=== PATIENT | female | born 1965 | race Caucasian/White ===

== ENCOUNTER → 2018-08-25 12:27 | Outpatient (CLI) | payer OTHER, SELFPAY ==
--- NOTE | 2018-08-25 12:29 | DI.MG.S_ITS ---
BILATERAL DIGITAL SCREENING MAMMOGRAM 3D/2D WITH CAD: 08/25/2018 CLINICAL: Routine screening. Comparison is made to exams dated: 08/22/2017 mammogram, 08/08/2016 mammogram, and 06/29/2015 mammogram - [facility]. The tissue of both breasts is heterogeneously dense. This may lower the sensitivity of mammography. Current study was also evaluated with a Computer Aided Detection (CAD) system. There are benign post operative findings in the left breast. There also are benign vascular calcifications in the left breast. No significant masses, calcifications, or other findings are seen in either breast. There has been no significant interval change. IMPRESSION: There is no mammographic evidence of malignancy. A 1 year screening mammogram is recommended. This exam was interpreted at Station ID: [id number]. NOTE: For mammograms, a report in lay terms will be sent to the patient. Approximately 15% of breast malignancies will not be visualized mammographically. In the management of a palpable breast mass, a negative mammogram must not discourage biopsy of a clinically suspicious lesion. Electronically Signed By: Omar barron/rosalio:08/25/2018 19:09:42 copy to: Marcel Vazquez letter sent: Normal Exam ACR BI-RADS Category 2: Benign Finding(s) 3342F
== END ==
PROVIDERS: PCP Family Medicine; Visit Provider Specialist
DX: Z12.31 Encounter for screening mammogram for malignant neoplasm of breast (principal); Z13.820 Encounter for screening for osteoporosis; Z82.62 Family history of osteoporosis; Z87.891 Personal history of nicotine dependence
CPT/HCPCS: 77063; 77067; 77080

== ENCOUNTER → 2020-03-28 16:13 | Outpatient (CLI) | payer OTHER, SELFPAY ==
--- NOTE | 2020-03-28 16:14 | DI.MG.S_ITS ---
BILATERAL DIGITAL SCREENING MAMMOGRAM 3D/2D WITH CAD: 03/28/2020 CLINICAL: Routine screening. Comparison is made to exams dated: 08/25/2018 mammogram, 08/22/2017 mammogram, and 08/08/2016 mammogram - [facility]. The tissue of both breasts is heterogeneously dense. This may lower the sensitivity of mammography. Current study was also evaluated with a Computer Aided Detection (CAD) system. There are benign post operative findings in the left breast. No significant masses, calcifications, or other findings are seen in either breast. There has been no significant interval change. IMPRESSION: BENIGN There is no mammographic evidence of malignancy. A 1 year screening mammogram is recommended. This exam was interpreted at Station ID: [id number]. NOTE: For mammograms, a report in lay terms will be sent to the patient. Approximately 15% of breast malignancies will not be visualized mammographically. In the management of a palpable breast mass, a negative mammogram must not discourage biopsy of a clinically suspicious lesion. Electronically Signed By: Chica mo/rosalio:03/28/2020 17:33:07 copy to: Marcel Vazquez letter sent: Normal Exam ACR BI-RADS Category 2: Benign Finding(s) 3342F
== END ==
PROVIDERS: PCP Family Medicine; Referring Provider Specialist; Visit Provider Specialist
DX: Z12.31 Encounter for screening mammogram for malignant neoplasm of breast (principal)
CPT/HCPCS: 77063; 77067

== ENCOUNTER → 2020-06-27 16:00 | Outpatient (CLI) | payer OTHER, SELFPAY ==
--- NOTE | 2020-06-27 | DI.RAD.S_ITS ---
PROCEDURE: XR SHOULDER LT MIN 2V INDICATIONS: Bilateral Shoulder Pain TECHNIQUE: 3 views of the shoulder were acquired. COMPARISON: [facility], , SHOULDER MINIMUM 2 VIEW LEFT, 02/03/2015, 14:24. FINDINGS: Bones: No fractures or dislocations. No suspicious bony lesions. Visualized ribs appear intact. Soft tissues: No suspicious soft tissue calcifications. 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 Dictated by: Shakeel Malik M.D. on 06/27/2020 at 17:24 Approved by: Shakeel Malik M.D. on 06/27/2020 at 17:24
--- NOTE | 2020-06-27 | DI.RAD.S_ITS ---
PROCEDURE: XR SHOULDER RT MIN 2V INDICATIONS: Bilateral Shoulder Pain TECHNIQUE: 3 views of the shoulder were acquired. COMPARISON: [facility], [facility], XR SHOULDER LT MIN 2V, 06/27/2020, 17:12. [facility], [facility], SHOULDER MINIMUM 2 VIEW LEFT, 02/03/2015, 14:24. FINDINGS: Bones: No fractures or dislocations but there has been interval acromioplasty on the right.. No suspicious bony lesions. Visualized ribs appear intact. Soft tissues: No suspicious soft tissue calcifications. IMPRESSION: Right-sided acromioplasty performed, chronicity uncertain. Dictated by: Shakeel Malik M.D. on 06/27/2020 at 17:24 Approved by: Shakeel Malik M.D. on 06/27/2020 at 17:26
== END ==
PROVIDERS: PCP Family Medicine; Referring Provider Family Medicine; Visit Provider Family Medicine
DX: M25.511 Pain in right shoulder (principal); M25.512 Pain in left shoulder
CPT/HCPCS: 73030

== ENCOUNTER → 2020-09-13 12:45 | Outpatient (CLI) | payer OTHER, SELFPAY ==
--- NOTE | 2020-09-13 12:58 | DI.CT.S_ITS ---
PROCEDURE: CT SOFT TISSUE NECK W CON INDICATIONS: Localized swelling, mass and lump, neck TECHNIQUE: After the administration of intravenous contrast, 3.0 mm axial sections acquired from the sella to the aortic arch. Additional oblique axial 3.0 mm sections acquired through the pharynx. 3 mm thick coronal and sagittal reformats were generated. For radiation dose reduction, the following was used: automated exposure control. COMPARISON: [facility], CT, CHEST/ABD/PEL WITH CONTRAST, 10/18/2015, 21:43. FINDINGS: Image quality: Excellent. Lymph nodes: No enlarged lymph nodes seen throughout the neck. Vessels: Visualized vasculature appears patent. Neck spaces: The oropharynx, nasopharynx, and pharynx demonstrate no mucosal lesions. The vocal cords, false vocal cords, pyriform sinuses, epiglottis, vallecula, and tongue base all appear normal. Extramucosal spaces appear unremarkable. Glands: Scrutiny is given to the area of clinical concern at the palpable focus along the posterior aspect of the left parotid gland. At this site, there is an ovoid low-density lesion that measures 18 x 13 by 24 mm. No additional left-sided parotid masses are seen. No right-sided parotid masses are seen. The submandibular glands appear normal. Thyroid gland demonstrates a low-density 7 mm lesion on the left, as on series 2, image 49. . Miscellaneous: Visualized brain and orbits appear normal. Lung apices appear clear. Superficial soft tissues appear normal. Bones: Remote right posterolateral rib fractures are partially seen. No suspicious bony lesions. Visualized sinuses and mastoids appear unremarkable. At least moderate cervical spine degenerative changes are seen. IMPRESSION: Low-density left parotid mass seen at the area of clinical concern. 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 Differential diagnosis would also include an intraparotid lymph node as well as metastatic disease and lymphoma, yet these entities are considered to be less likely. If clinically appropriate, please consider a follow-up ultrasound with percutaneous fine needle aspiration. 7 mm low-density lesion seen involving the left thyroid. By published criteria, no specific imaging follow-up would be recommended. Incidental note is made of: Remote right posterolateral rib fractures At least moderate cervical spine degenerative change Dictated by: Julian Richter M.D. on 09/13/2020 at 12:27 Approved by: Julian Richter M.D. on 09/13/2020 at 12:33
== END ==
PROVIDERS: PCP Family Medicine; Referring Provider Otolaryngology; Visit Provider Otolaryngology
DX: K11.9 Disease of salivary gland, unspecified (principal); E07.9 Disorder of thyroid, unspecified; M47.812 Spondylosis without myelopathy or radiculopathy, cervical region
CPT/HCPCS: 70491

== ENCOUNTER → 2020-11-14 16:15 | Outpatient (CLI) | payer OTHER, SELFPAY ==
[2020-11-15 09:17] LABS: Fecal Immunochemical Test Negative (Negative)
== END ==
PROVIDERS: PCP Family Medicine; Referring Provider Specialist; Visit Provider Specialist
DX: Z12.11 Encounter for screening for malignant neoplasm of colon (principal)
CPT/HCPCS: 82274

== ENCOUNTER → 2021-02-08 09:32 | Outpatient (CLI) | payer OTHER, SELFPAY ==
[2021-02-08 10:40] LABS: Add Manual Diff / Slide Review NO; Basophils Absolute Auto 0 /uL (0-100); Basophils Percent Auto 0.9 % (0-2); Eosinophils Absolute Auto 100 /uL (0-450); Eosinophils Percent Auto 2.1 % (2-4); Hematocrit 42.7 % (36-46); Hemoglobin 14.5 g/dL (12.0-16.0); Lymphocytes Absolute Auto 1900 /uL (1100-4500); Lymphocytes Percent Auto 40.4 % (25-40); Mean Corpuscular HGB Conc 33.9 % (30-36); Mean Corpuscular Hemoglobin 31.8 PG (26-34); Mean Corpuscular Volume 93.9 fL (80-100); Monocytes Absolute Auto 300 /uL (0-900); Monocytes Percent Auto 7.3 % (3-14); Neutrophils Absolute Auto 2300 /uL (1500-7000); Neutrophils Percent Auto 49.3 % (50-75); Platelet Count 213 X10^3/uL (150-400); Red Blood Cell Count 4.54 X10^6/uL (4.0-5.2); Red Cell Distribution Width 12.5 % (11.6-14.8); White Blood Cell Count 4.7 X10^3/uL (4.5-11.0)
[2021-02-08 11:34] LABS: Alanine Aminotransferase 20 IU/L (<35); Albumin 4.5 g/dL (3.5-5.0); Albumin Globulin Ratio 1.8 (1.0-2.8); Alkaline Phosphatase 55 U/L (38-126); Aspartate Aminotransferase 28 IU/L (14-36); BUN Creatinine Ratio 19.2 (6-22); Bilirubin Total 0.6 mg/dL (0.2-1.3); Blood Urea Nitrogen 15 mg/dL (7-17); Calcium 9.2 mg/dL (8.4-10.2); Carbon Dioxide 30 mmol/L (22-32); Chloride 104 mmol/L (98-107); Cholesterol 229 mg/dL (140-199); Estimated Glomerular Filt Rate > 60.0 mL/min (>60); Globulin 2.5 g/dL (1.7-4.1); Glucose 88 mg/dL (70-100); HDL Cholesterol 99 mg/dL (40-60); HEMOLYSIS < 15 (0-50); LDL Cholesterol Calculated 117 mg/dL (<100); Sodium 138 mmol/L (137-145); Triglycerides 63 mg/dL (35-150)
[2021-02-08 12:03] LABS: TSH w/ Reflex to FT4 3.33 uIU/mL (0.47-4.68)
== END ==
PROVIDERS: PCP Family Medicine; Referring Provider Specialist; Visit Provider Specialist
DX: R53.83 Other fatigue (principal); Z13.220 Encounter for screening for lipoid disorders
CPT/HCPCS: 36415; 80053; 80061; 84443; 85025

== ENCOUNTER → 2021-04-28 12:57 | Outpatient (CLI) | payer OTHER, SELFPAY ==
--- NOTE | 2021-04-28 13:00 | DI.MG.S_ITS ---
BILATERAL DIGITAL SCREENING MAMMOGRAM 3D/2D WITH CAD: 04/28/2021 CLINICAL: Routine screening. Comparison is made to exams dated: 03/28/2020 mammogram, 08/25/2018 mammogram, and 08/22/2017 mammogram - [facility]. The tissue of both breasts is heterogeneously dense. This may lower the sensitivity of mammography. Current study was also evaluated with a Computer Aided Detection (CAD) system. There are benign post operative findings in the left breast. No significant masses, calcifications, or other findings are seen in either breast. There has been no significant interval change. IMPRESSION: BENIGN There is no mammographic evidence of malignancy. A 1 year screening mammogram is recommended. This exam was interpreted at Station ID: [id number]. NOTE: For mammograms, a report in lay terms will be sent to the patient. Approximately 15% of breast malignancies will not be visualized mammographically. In the management of a palpable breast mass, a negative mammogram must not discourage biopsy of a clinically suspicious lesion. Electronically Signed By: Chica mo/rosalio:04/28/2021 17:22:30 copy to: Marcel Vazquez letter sent: Normal Exam ACR BI-RADS Category 2: Benign Finding(s) 3342F
== END ==
PROVIDERS: PCP Family Medicine; Referring Provider Family Medicine; Visit Provider Family Medicine
DX: Z12.31 Encounter for screening mammogram for malignant neoplasm of breast (principal)
CPT/HCPCS: 77063; 77067

== ENCOUNTER → 2023-08-07 14:46 | Outpatient (CLI) | payer OTHER, SELFPAY ==
--- NOTE | 2023-08-07 14:47 | DI.MG.S_ITS ---
BILATERAL DIGITAL SCREENING MAMMOGRAM 3D/2D WITH CAD: 08/07/2023 CLINICAL: Routine screening. Comparison is made to exams dated: 04/28/2021 mammogram, 03/28/2020 mammogram, and 08/25/2018 mammogram - [facility]. Both breasts are heterogeneously dense, which may obscure small masses (category c / 51-75% glandular tissue). Current study was also evaluated with a Computer Aided Detection (CAD) system. There are benign post operative findings in the left breast. No significant masses, calcifications, or other findings are seen in either breast. There has been no significant interval change. IMPRESSION: BENIGN There is no mammographic evidence of malignancy. A 1 year screening mammogram is recommended. Based on Tyrer-Cuzick model (a risk assessment model), the patient's lifetime risk is 41.0% and her 10 year risk is 18.9%. If a patient has an elevated risk, a more comprehensive evaluation should be considered and/or a referral to a genetic counselor. The [place] [employer], [employer], and NCCN Guidelines advise the consideration of Breast MRI as an adjunct to screening mammography in patients whose Lifetime risk to develop breast cancer is 20% or higher. This exam was interpreted at Station ID: [id number]. NOTE: For mammograms, a report in lay terms will be sent to the patient. Approximately 15% of breast malignancies will not be visualized mammographically. In the management of a palpable breast mass, a negative mammogram must not discourage biopsy of a clinically suspicious lesion. Electronically Signed By: Cruz leo/rosalio:08/07/2023 21:37:02 copy to: Marcel Vazquez copy to: Abi Calderón D.O., [facility], ph: [phone], fax: [phone] letter sent: Normal Exam ACR BI-RADS Category 2: Benign Finding(s) [id number]
== END ==
LOC: MAMMO 14:46
PROVIDERS: PCP Student in an Organized Health Care Education/Training Program; Referring Provider Family Medicine; Visit Provider Family Medicine
DX: Z12.31 Encounter for screening mammogram for malignant neoplasm of breast (principal); R92.333 Mammographic heterogeneous density, bilateral breasts
CPT/HCPCS: 77063; 77067

== ENCOUNTER → 2024-11-23 09:53 | Outpatient (CLI) | payer OTHER, SELFPAY ==
--- NOTE | 2024-11-23 09:55 | DI.RAD.S_ITS ---
PROCEDURE: XR DEXA AXIAL SKELETON INDICATIONS: POSTMENOPAUSAL COMPARISON: [facility], , XR DEXA AXIAL SKELETON, 08/25/2018, 13:22. FINDINGS: Lumbar Spine: L1-L4. Bone mineral density 0.915 g/cm2, T score -1.2. Left Femoral Neck: Bone mineral density 0.665 g/cm2, T score -1.7. Left Hip: Bone mineral density 0.824 g/cm2, T score -1.0. Fracture Risk Calculation (when applicable): 10-year fracture risk of a major osteoporotic fracture 8.0 percent and of a hip fracture 0.8 percent. (T score greater or equal to -1.0 to: NORMAL) (T score from -1.1 to -2.4: OSTEOPENIA) (T score less than or equal to -2.5: OSTEOPOROSIS) IMPRESSION: Osteopenia. Follow-up guidelines as follows: Osteoporosis: Consider a repeat DEXA and Vertebral Fracture Assessment (VFA) exam in 2 years or sooner if medically necessary, to reassess this patient's status. Osteopenia: Consider a repeat DEXA in 2-3 years to reassess this patient's status, or if there is a new clinical indication. Normal: Consider a repeat DEXA in 5 years or sooner, or if there is a new clinical indication. All treatment decisions require clinical judgment and consideration of individual patient factors, including patient preferences, comorbidities, previous drug use, risk factors not captured in the FRAX model (e.g., frailty, falls, vitamin D deficiency, increased bone turnover, interval significant decline in bone density ) and possible under- or over-estimation of fracture risk by FRAX. In addition, the NOF Guide recommends that FDA-approved medical therapies be considered in postmenopausal women and men age >= 50 years with a: * Hip or vertebral (clinical or morphometric) fracture * T-score of <=-2.5 at the spine or hip * Ten-year fracture probability by FRAX of >= 3% for hip fracture or >=20% for major osteoporotic fracture. Dictated by: Cruz Carbone M.D. on 11/24/2024 at 8:17 Approved by: Cruz Carbone M.D. on 11/24/2024 at 8:18
== END ==
PROVIDERS: PCP Student in an Organized Health Care Education/Training Program; Referring Provider Student in an Organized Health Care Education/Training Program; Visit Provider Student in an Organized Health Care Education/Training Program
DX: M85.89 Other specified disorders of bone density and structure, multiple sites (principal); Z78.0 Asymptomatic menopausal state
CPT/HCPCS: 77080